=== PATIENT | female | born 1960 | race Caucasian/White ===

== ENCOUNTER 2021-09-17 11:29 | Observation (INO) | payer OTHER, SELFPAY ==
[2021-09-17] VITALS (25 sets, daily range): BP systolic 116–157; BP diastolic 72–105; PULSE 94–108; RESP 15–26; TEMP 36.3–36.4; O2SAT 95–100
--- NOTE | ~2021-09-17 | CT_ITS ---
EXAMINATION: CT cervical spine wo con DATE: 09/17/2021 12:24 INDICATION: Fall. TECHNIQUE: Computed tomography (CT) of the cervical spine was performed without intravenous contrast. Automated exposure control and iterative reconstruction technique were employed. The dose-length pro duct was 118.78 mGy-cm. COMPARISON: None FINDINGS: The visualized portions of the lung apices demonstrate emphysema. Vertebral body heights ar e normal. There is moderately decreased disc height at C5-C6. The following disc levels are specifica lly discussed: C2-C3: There is mild bilateral uncovertebral joint osteoarthritis. There is mild left facet joint ost eoarthritis. There is no neural foraminal stenosis. There is no central canal stenosis. C3-C4: There is mild left uncovertebral joint osteoarthritis. There is mild right and moderate left f acet joint osteoarthritis. There is no neural foraminal stenosis. There is no central canal stenosis. C4-C5: There is no uncovertebral joint osteoarthritis. There is mild bilateral facet joint osteoarthr itis. There is no neural foraminal stenosis. There is no central canal stenosis. C5-C6: There is moderate right and severe left uncovertebral joint osteoarthritis. There is moderate right and severe left facet joint osteoarthritis. There is mild left neural foraminal stenosis. There is mild central canal stenosis. C6-C7: There is no uncovertebral joint osteoarthritis. There is mild bilateral facet joint osteoarthr itis. There is no neural foraminal stenosis. There is no central canal stenosis. C7-T1: There is no uncovertebral joint osteoarthritis. There is mild bilateral facet joint osteoarthr itis. There is no neural foraminal stenosis. There is no central canal stenosis. IMPRESSION: 1. No fracture. 2. Moderate spondylosis at C5-C6 and mild spondylosis at other levels. Reviewed, dictated and finalized at location A.
--- NOTE | ~2021-09-17 | XR_ITS ---
EXAMINATION: XR pelvis 1-2V DATE: 09/17/2021 12:31 INDICATION: Pelvic pain. TECHNIQUE: An anteroposterior view of the pelvis was obtained. COMPARISON: None. FINDINGS: Bone alignment is normal. No fracture. There is mild osteoarthritis of the hips. There is a t least mild lumbar spondylosis. A calcification in the pelvis is likely a fibroid. IMPRESSION: 1. Mild osteoarthritis of the hips. Reviewed, dictated and finalized at location A.
--- NOTE | ~2021-09-17 | CT_ITS ---
EXAMINATION: CT brain wo con DATE: 09/17/2021 12:24 INDICATION: Fall. TECHNIQUE: Computed tomography (CT) of the head was performed without intravenous contrast. The mA wa s adjusted according to patient size. Iterative reconstruction technique was employed. The dose-lengt h product was 605.33 mGy-cm. COMPARISON: None FINDINGS: There is no intracranial hemorrhage, acute infarction, or abnormal intracranial mass lesion . There are scattered areas of low attenuation in the cerebral white matter, which is within normal l imits for the patient's age. The ventricles are normal in size. The orbits are normal. There is mild mucosal thickening in the paranasal sinuses. The mastoid air cells are normal. IMPRESSION: 1. Normal aging brain. Reviewed, dictated and finalized at location A. IMPRESSION: 1. Normal aging brain.
--- NOTE | ~2021-09-17 | XR_ITS ---
EXAMINATION: XR chest 1V DATE: 09/17/2021 12:32 INDICATION: Chest pain. Fall. TECHNIQUE: A single frontal view of the chest was obtained. COMPARISON: None. FINDINGS: The chest demonstrates clear lungs without pneumonia, pleural effusion, or pneumothorax. Th e heart size is normal. IMPRESSION: 1. No acute cardiopulmonary disease. Reviewed, dictated and finalized at location A.
--- NOTE | 2021-09-17 11:44 | ECG_ITS ---
Measurements Intervals [place] Rate: 91 P: 84 [place]: 164 QRS: 58 QRSD: 77 T: 54 QT: 344 QTc: 424 Interpretive Statements SINUS RHYTHM WITHIN NORMAL LIMITS NO PREVIOUS ECG AVAILABLE FOR COMPARISON Electronically Signed On 09-17-2021 16:29:32 CDT by Shar Thomas M.D.
--- NOTE | 2021-09-17 12:10 | ED.FALL ---
HPI - Fall General Chief Complaint: Fall Stated Complaint: fall Source: RN notes reviewed History of Present Illness HPI Narrative: Patient presents to emergency department from [facility] via EMS for a fall. Patient states she went to go to the restroom she states that she called for help to go the bathroom but had had to go before help arrived and walked her self to the bathroom states she sat down on the toilet to go the bathroom and when she went to go get up she was dizzy states she was able to get herself up and then she fell she is unsure if she had any loss of consciousness states she normally walks with a walker but did not have a walker at that time. She denies any pain at this time she denies any recent illness denies any fevers or chills chest pain or shortness of breath Related Data Allergies Allergy/AdvReac Type Severity Reaction Status Date / Time No Known Allergies Allergy Verified 09/17/21 11:43 Review of Systems Review of Systems: Gen.: Denies fevers or chills Eyes: Denies eye pain or visual change ENT: Denies congestion Respiratory: Denies shortness of breath or cough CV: Denies chest pain or palpitations GI: Denies abdominal pain nausea, emesis or diarrhea Musculoskeletal: Denies back pain or muscle pain Neuro: Denies numbness, tingling, weakness or focal weakness Skin: Denies rash Except as documented, all other systems reviewed and negative [facility] Past Medical History Medical History (Updated 09/17/21 @ 16:08 by Quincy Hansen DO) Patient denies significant medical history Social History Social History (Updated 09/17/21 @ 16:05 by Quincy Hansen DO) Smoking status: Never smoker Exam Narrative: APPEARANCE: No acute distress, nontoxic, resting in bed EYES: EOMI, PERRL HEENT: Normocephalic, atraumatic, no facial tenderness Neck no midline tenderness palpation tender palpation right paravertebral muscles C5-7 RESPIRATORY: No respiratory distress Clear to auscultation bilaterally with no rhonchi wheezing or rales. CARDIOVASCULAR: Regular rate and rhythm without murmurs rubs or gallops. ABDOMINAL: Soft, nontender, nondistended, no rebound or guarding MUSCULOSKELETAl: Moves all extremities. No clubbing, cyanosis or edema. No tenderness of bilateral upper or lower extremities Back: No midline thoracic or lumbar tenderness palpation NEURO: Awake and alert x 4. Following commands, speech normal, no focal deficits SKIN:: Warm, dry. No rashes lesions or abrasions PSYCHIATRIC: Normal affect/mood, Course Course Emergency Course: Attempted to get patient up for road test patient weak and unable to walk on her own will admit for antibiotics Discussed with JOJO Zamorano for Dr. Jain agrees with admission at this time Discussed with patient and family results of workup and diagnosis. Discussed need for admission. Patient and family understand and agree to current treatment plan Vital Signs Vital signs: Vital Signs Blood Pressure 134/98 H 09/17/21 11:32 Pulse Oximetry 100 09/17/21 11:32 Temperature 97.5 F L 09/17/21 16:19 Pulse Rate 94 09/17/21 16:19 Respiratory Rate 16 09/17/21 16:19 Blood Pressure 138/100 H 09/17/21 16:19 Pulse Oximetry 99 09/17/21 16:19 Oxygen Delivery Room Air 09/17/21 11:34 MDM - Fall Lab Data Result diagrams: 09/17/21 12:13 09/17/21 12:13 Labs: Lab Results 09/17/21 09/17/21 09/17/21 Range/Units 12:13 12:13 12:13 WBC 6.8 (4.5-10.0) K/mm3 RBC 3.55 L (4.2-5.4) M/mm3 Hgb 11.5 L (12.0-15.0) g/dL Hct 35.7 L (37.0-47.0) % MCV 100.6 H (80-100) fl MCH 32.4 (26-34) pg MCHC 32.2 (32-36) g/dl RDW 16.1 H (11.5-14.5) % Plt Count 323 (150-375) k/mm3 MPV 9.3 (7.4-10.4) fl Immature Gran % (Auto) 0.7 H (0-0.5) % Neut % (Auto) 61.9 (45.5-73.1) % Lymph % (Auto) 26.2 (18.3-44.2) % [place] % (Auto) 9.2 H (2.6-8.5) % Eos % (Auto) 1.0 (0-4.4) % Baso %
[2021-09-17 12:19] LABS: Basophils Absolute Auto 0.1 K/mm3 (0.0-0.1); Eosinophils Absolute Auto 0.1 K/mm3 (0-0.3); Hematocrit 35.7 % (37.0-47.0); Hemoglobin 11.5 g/dL (12.0-15.0); Immature Granulocyte Absolute 0.05 K/mm3 (0.00-0.031); Immature Granulocyte Percent A 0.7 % (0-0.5); Lymphocytes Absolute Auto 1.79 K/mm3 (0.9-3.2); Lymphocytes Percent Auto 26.2 % (18.3-44.2); Mean Corpuscular HGB Conc 32.2 g/dl (32-36); Mean Corpuscular Hemoglobin 32.4 pg (26-34); Mean Corpuscular Volume 100.6 fl (80-100); Mean Platelet Volume 9.3 fl (7.4-10.4); Monocytes Absolute Auto 0.6 K/mm3 (0.1-0.6); Monocytes Percent Auto 9.2 % (2.6-8.5); Neutrophils Absolute Auto 4.2 K/mm3 (1.3-6.7); Neutrophils Percent Auto 61.9 % (45.5-73.1); Platelet Count Result 323 k/mm3 (150-375); Red Blood Count 3.55 M/mm3 (4.2-5.4); Red Cell Distribution Width 16.1 % (11.5-14.5); White Blood Count 6.8 K/mm3 (4.5-10.0)
[2021-09-17 12:28] LABS: Alanine Aminotransferase 19 U/L (6-35); Albumin Level 3.1 g/dL (3.5-5.1); Alkaline Phosphatase 115 U/L (38-126); Anion Gap 7 mmol/L (8-16); Aspartate Amino Transferase 26 U/L (14-36); Bilirubin,Total 0.8 mg/dL (0.2-1.3); Blood Urea Nitrogen 4 mg/dL (7-17); Calcium 8.3 mg/dL (8.4-10.2); Carbon Dioxide 26 mmol/L (22-30); Chloride 103 mmol/L (98-107); Estimated CRCL calculation 85 ml/min; Estimated Glomerular Filt Rate > 60; Glucose 106 mg/dL (65-110); Potassium 4.2 mmol/L (3.4-5.0); Sodium 136 mmol/L (137-145)
[2021-09-17 12:35] LABS: Partial Thromboplastin Time 26.2 SECONDS (22.3-36.8)
[2021-09-17 14:40] LABS: Appearance Urine Clear (Clear); Bilirubin Urine Negative (Negative); Color Urine Yellow (Yellow); Glucose Urine UA Negative (Negative); Ketones Urine Negative (Negative); Leukocyte Esterase Ur 2+ LEU/UL (Negative); Nitrate Urine Negative (Negative); Protein Urine Negative (Negative); Specific Grav Ur 1.015 (1.001-1.035); pH Urine 7.5 (5.0-9.0)
[2021-09-17 14:44] LABS: Add Urine Microscopic? YES; Blood Urine Trace-Intact (Negative)
[2021-09-17 14:59] LABS: Bacteria Urine Trace /hpf; RBC Urine 0-2 /hpf (0-2); Squamous Epithelial Cell Urine Rare /hpf (Few); WBC Urine 16-20 /hpf
--- NOTE | 2021-09-17 16:07 | PC.NURSE ---
Meal ordered from dietary
[2021-09-17 16:28] LABS: SARS-CoV-2 RNA PCR Negative
[2021-09-17 16:34] LABS: Troponin I < 0.012 ng/mL (0.000-0.034)
--- NOTE | 2021-09-17 17:42 | ADMGEN ---
This patient, Angella Dunn, was admitted to Medical Room 248-. Patient/family oriented to hospital policies and general routines including ID bracelet, bed and alarms, visiting hours, pain management, procedures, bathroom and other care routines, personal items, smoking policy, room service/diet, and visiting hours. Information on how to activate the Rapid Response Team has been discussed. Patient/Family are encouraged to report perceived risks to care and to ask questions if they do not understand what they are told or what they should do.
--- NOTE | 2021-09-17 18:10 | PM.IMHP ---
H&P: HPI History of Present Illness Date/Time: 09/17/21 18:10 Chief Complaint: Unwitnessed fall. Narrative: This is a 61-year-old female with history of alcohol abuse who presented to the emergency department via EMS from [facility] in [place] for evaluation after an unwitnessed fall. She was living in a home with her friend prior to about 2 months ago. It is my understanding that she fell down a couple of steps while at a barbecue and she was hospitalized for a couple of days before being discharged to a rehab facility in [place]. She was happy that facility and reports that they were doing physical therapy with her but about 2 weeks ago she was sent to [facility], reason unknown to the patient. She indicates to me that she has been essentially bed-bound since being transferred there and she is not receiving physical therapy. She is told to call for help when she needs to go to the bathroom however today her calls went unanswered and she got herself up to use the restroom. She made it back to her bed but unfortunately lost her balance ?because my legs are weak and shaky? when trying to get into bed, and she fell down onto her buttocks. She struck the back of her head on the floor but she denies injuries in the fall. Workup in the emergency department was relatively unrevealing but due to her inability to ambulate unassisted with a walker (she reported to the ED physician that she is typically able to do so without assistance) she is being admitted in this setting. Review of Systems Review of Systems: Twelve systems were reviewed. No history of stroke. Denies focal weakness and paresthesias. Recent cold or flu symptoms. No fever, chills, or sweats. No nausea, vomiting, or diarrhea. No dysuria, urgency, or urinary hesitancy. She denies ever having signs or symptoms of alcohol withdrawal. Except as documented, all other systems were reviewed and are negative. [facility] Past Medical History Medical History Alcohol abuse Surgical History Surgical History (Updated 09/18/21 @ 13:29 by Lona Eller PA-C) History of benign breast biopsy Family History Family History Mother Pancreatic cancer Social History Social History (Updated 09/18/21 @ 13:31 by Lona Eller PA-C) Social History: Surrogate medical decision maker: Eloina Alarcon, friend. Code status: Full code. Smoking packs per day: 2 Smoking cigarettes per day: 40.0 Years smoked: 50 Smoking pack-years: 100.00 Smoking status: Former smoker Additional smoking assessment comments: No cigarettes since July 2021. Alcohol intake: former Alcohol use details: No alcohol since July 2021. Prior to that she drank 6-7, 32 oz cans of beer a day. Substance use: never Additional living arrangements comments: Currently at [facility] for reported rehab.. Spiritual care concerns: No Meds Home Medications and Allergies Home Medications Medication Instructions Recorded Confirmed Type Therems Multivitamin 1 tab-cap PO DAILY 09/17/21 09/17/21 History bisacodyl 10 mg rectal suppository 10 mg RECTAL DAILY PRN constipation 09/17/21 09/17/21 History diclofenac sodium 1 % topical TID 09/17/21 09/17/21 History gabapentin 100 mg capsule 100 mg PO BID 09/17/21 09/17/21 History magnesium citrate 296 ml PO ONCE PRN Constipation 09/17/21 09/17/21 History magnesium hydroxide 400 mg/5 mL 400 mg PO DAILY PRN Constipation 09/17/21 09/17/21 History oral suspension (Milk of Magnesia) Allergies Allergy/AdvReac Type Severity Reaction Status Date / Time No Known Allergies Allergy Verified 09/17/21 17:42 Vital Signs Vital Signs - 24 hr 09/17/21 11:34 09/17/21 11:51 09/17/21 11:32 Temperature 97.6 F Pulse Rate 98 Respiratory Rate 16 Blood Pressure 134/98 H 134/98 H Pulse Oximetry 100 100 Oxygen Delivery Room Air 09/17/21 11:33 09/17/21
[2021-09-17 19:07] LABS: Troponin I < 0.012 ng/mL (0.000-0.034)
--- NOTE | 2021-09-17 19:08 | PM.TDS ---
Transfer Discharge Sum: Prov Provider Date of admission: 09/17/21 15:52 Primary care physician: UNKNOWN,DOCTOR Admitting clinician: Mariela Jain MD Transfer Discharge Sum: Med Medications Active and Home Medications: Active Medications Ceftriaxone Sodium/Dextrose (Rocephin 1 Gm/D5w 50 Ml) 1 gm in 50 mls @ 100 mls/hr IVPB Q24H KEYSHAWN Sodium Chloride (Normal Saline Iv) 1,000 mls @ 80 mls/hr IV CONT .[id number] KEYSHAWN Transfer Discharge Sum: Hosp Hospital Course Hospital course: Angella Dunn is a 61 year old female Time Spent with Patient Time attestation: Total time spent providing and/or coordinating transfer services: DS: Data Data Completed and Pending Labs on day of discharge: Labs from last 24 hours 09/17/21 09/17/21 09/17/21 18:26 15:27 14:16 WBC RBC Hgb Hct MCV MCH MCHC RDW Plt Count MPV Immature Gran % (Auto) Neut % (Auto) Lymph % (Auto) [place] % (Auto) Eos % (Auto) Baso % (Auto) Lymph # (Auto) [place] # (Auto) Eos # (Auto) Baso # (Auto) Abs Immat Gran (auto) Absolute Neuts (auto) Absolute Nucleated RBC Nucleated RBC % PT INR APTT Sodium Potassium Chloride Carbon Dioxide Anion Gap BUN Creatinine Estim Creat Clear Calc Estimated GFR Glucose Calcium Total Bilirubin AST ALT Alkaline Phosphatase Troponin I < 0.012 Total Protein Albumin Urine Color Yellow Urine Appearance Clear Urine pH 7.5 Ur Specific [place] 1.015 Urine Protein Negative Urine Glucose (UA) Negative Urine Ketones Negative Ur Blood (Man) Trace-intact Urine Nitrate Negative Urine Bilirubin Negative Urine Urobilinogen 1.0 Leukocyte Esterase Rfl 2+ H Urine RBC 0-2 Urine WBC 16-20 H Ur Squamous Epith Cells Rare Urine Bacteria Trace SARS-CoV-2 RNA (RT-PCR) Negative 09/17/21 09/17/21 09/17/21 12:13 12:13 12:13 WBC RBC Hgb Hct MCV MCH MCHC RDW Plt Count MPV Immature Gran % (Auto) Neut % (Auto) Lymph % (Auto) [place] % (Auto) Eos % (Auto) Baso % (Auto) Lymph # (Auto) [place] # (Auto) Eos # (Auto) Baso # (Auto) Abs Immat Gran (auto) Absolute Neuts (auto) Absolute Nucleated RBC Nucleated RBC % PT 13.0 INR 1.0 APTT 26.2 Sodium 136 L Potassium 4.2 Chloride 103 Carbon Dioxide 26 Anion Gap 7 L BUN 4 L Creatinine 0.50 L Estim Creat Clear Calc 85 Estimated GFR > 60 Glucose 106 Calcium 8.3 L Total Bilirubin 0.8 AST 26 ALT 19 Alkaline Phosphatase 115 Troponin I < 0.012 Total Protein 7.0 Albumin 3.1 L Urine Color Urine Appearance Urine pH Ur Specific [place] Urine Protein Urine Glucose (UA) Urine Ketones Ur Blood (Man) Urine Nitrate Urine Bilirubin Urine Urobilinogen Leukocyte Esterase Rfl Urine RBC Urine WBC Ur Squamous Epith Cells Urine Bacteria SARS-CoV-2 RNA (RT-PCR) 09/17/21 12:13 WBC 6.8 RBC 3.55 L Hgb 11.5 L Hct 35.7 L MCV 100.6 H MCH 32.4 MCHC 32.2 RDW 16.1 H Plt Count 323 MPV 9.3 Immature Gran % (Auto) 0.7 H Neut % (Auto) 61.9 Lymph % (Auto) 26.2 [place] % (Auto) 9.2 H Eos % (Auto) 1.0 Baso % (Auto) 1.0 Lymph # (Auto) 1.79 [place] # (Auto) 0.6 Eos # (Auto) 0.1 Baso # (Auto) 0.1 Abs Immat Gran (auto) 0.05 H Absolute Neuts (auto) 4.2 Absolute Nucleated RBC 0.0 Nucleated RBC % 0.0 PT INR APTT Sodium Potassium Chloride Carbon Dioxide Anion Gap BUN Creatinine Estim Creat Clear Calc Estimated GFR Glucose Calcium Total Bilirubin AST ALT Alkaline Phosphatase Troponin I Total Protein Albumin Urine Color Urine Appearance Urine pH Ur Specific [place] Urine Protein Urine Glucose (UA) Urine Ketones Ur Blood (Man) Urine Nitrate
[2021-09-17 20:56] LABS: Troponin I < 0.012 ng/mL (0.000-0.034)
[2021-09-17] MEDS: SODIUM CHLORIDE 0.9% IV 1,000 ML 80 ML IV CONT (21:08)
[2021-09-18] VITALS (16 sets, daily range): BP systolic 102–138; BP diastolic 62–117; PULSE 95–120; RESP 12–16; TEMP 36.3–36.9; O2SAT 98–100; BMI 22.2
[2021-09-18 08:52] LABS: Anion Gap 8 mmol/L (8-16); Blood Urea Nitrogen 4 mg/dL (7-17); Calcium 8.4 mg/dL (8.4-10.2); Carbon Dioxide 22 mmol/L (22-30); Chloride 106 mmol/L (98-107); Estimated CRCL calculation 75 ml/min; Estimated Glomerular Filt Rate > 60; Glucose 118 mg/dL (65-110); Potassium 3.8 mmol/L (3.4-5.0); Sodium 136 mmol/L (137-145)
[2021-09-18 09:04] LABS: Basophils Absolute Auto 0.1 K/mm3 (0.0-0.1); Basophils Percent Auto 1.1 % (0.2-1.2); Eosinophils Absolute Auto 0.1 K/mm3 (0-0.3); Eosinophils Percent Auto 0.9 % (0-4.4); Hematocrit 32.1 % (37.0-47.0); Hemoglobin 10.8 g/dL (12.0-15.0); Immature Granulocyte Absolute 0.06 K/mm3 (0.00-0.031); Immature Granulocyte Percent A 0.6 % (0-0.5); Lymphocytes Absolute Auto 2.34 K/mm3 (0.9-3.2); Lymphocytes Percent Auto 25.1 % (18.3-44.2); Mean Corpuscular HGB Conc 33.6 g/dl (32-36); Mean Corpuscular Volume 98.2 fl (80-100); Mean Platelet Volume 9.8 fl (7.4-10.4); Monocytes Absolute Auto 0.8 K/mm3 (0.1-0.6); Monocytes Percent Auto 8.2 % (2.6-8.5); Neutrophils Percent Auto 64.1 % (45.5-73.1); Platelet Count Result 368 k/mm3 (150-375); Red Blood Count 3.27 M/mm3 (4.2-5.4); Red Cell Distribution Width 16.4 % (11.5-14.5); White Blood Count 9.3 K/mm3 (4.5-10.0)
[2021-09-18] MEDS: GABAPENTIN 100 MG CAPSULE PO ×2 (09:32→16:52)
[2021-09-18] MEDS: MULTIVITAMINS THERAPEUTIC TAB (*BKC) 1 TABLET PO (09:32)
[2021-09-18 12:16] LABS: Iron 66 ug/dL (37-170)
[2021-09-18 12:28] LABS: Percent Iron Saturation 34 % (20-50)
--- NOTE | 2021-09-18 12:42 | PM.IMPN ---
Progress Note: A&P Assessment and Plan (1) Unwitnessed fall: Code(s): R29.6 - Repeated falls Status: Acute Assessment and Plan: atient reports that she felt weak and shaky when ambulating back to her bed, which caused her to lose her balance and fall. She sustained no injuries in the fall. Unfortunately it sounds as though she continues to become increasingly more weak with lesser activity.? Per patient report, she is rarely allowed out of the bed and she is not receiving therapy. Ultimately her goal is to return home. Initiate fall precautions.? PT/OT consulted. She would benefit from placement in the rehab facility where she will actually receive therapy. 09/18/2021 interval history: today patient stats she was able to work with PT and ambulated with walker, patient weakness, fatigue, unsteady in her feet and recurrent fall, Concerning for anemia, her iron vitamin B12 levels are normal, TSH is pending, will continue physical therapy patient will benefit with rehab and further recommendation to follow. (2) Gait instability: Code(s): R26.81 - Unsteadiness on feet Status: Acute Assessment and Plan: will have a PT OT evaluate the patient patient will benefit going to rehab. Subjective Date/time seen: 09/18/21 12:42 This is a 61-year-old female with history of alcohol abuse who presented to the emergency department via EMS from [facility] in [place] for evaluation after an unwitnessed fall. She was living in a home with her friend prior to about 2 months ago. It is my understanding that she fell down a couple of steps while at a barbecue and she was hospitalized for a couple of days before being discharged to a rehab facility in [place]. She was happy that facility and reports that they were doing physical therapy with her but about 2 weeks ago she was sent to [facility], reason unknown to the patient. She indicates to me that she has been essentially bed-bound since being transferred there and she is not receiving physical therapy. She is told to call for help when she needs to go to the bathroom however today her calls when on answered and she got herself up to use the restroom. She made it back to her bed but unfortunately lost her balance ?because my legs are weak and shaky? when trying to get into bed, and she fell down onto her buttocks. She struck the back of her head on the floor but she denies injuries in the fall. Workup in the emergency department was relatively unrevealing but due to her inability to ambulate along with a walker (she reported to the ED physician that she is typically able to do so without assistance) she is being admitted in this setting. 09/18/2021 interval history: today patient stats she was able to work with PT and ambulated with walker, patient weakness, fatigue, unsteady in her feet and recurrent fall, Concerning for anemia, her iron vitamin B12 levels are normal, TSH is pending, will continue physical therapy patient will benefit with rehab and further recommendation to follow. Review of Systems Review of Systems: Twelve systems were reviewed. No recent cold or flu symptoms. No fever, chills, or sweats. No nausea, vomiting, or diarrhea. No dysuria. She denies ever having signs or symptoms of alcohol withdrawal. Exam Narrative: Patient is comfortable, NAD HEENT: eyes are clear and none icteric LUNGS: normal respiratory effort ABD: not distended Lower extremities: no edema SKIN: nonjaundiced Neuro: grossly intact. Objective Data Vital Signs Vital Signs: Vital Signs - 24 hr 09/17/21 12:45 09/17/21 13:00 09/17/21 13:15 Temperature Pulse Rate Respiratory Rate Blood Pressure Pulse Oximetry 99 98 98 Oxygen Delivery 09/17/21 13:30 09/17/21 14:05 09/17/21 14:59 Temperature Pulse Rate Respiratory Rate Blood Pressure Pulse Oximetry 98 99 96 Oxygen Delivery 09/17/21 15:00 09/17/21 16:19 09/17/21
[2021-09-18 15:11] LABS: Creatine Kinase 81 U/L (30-135)
[2021-09-18] MEDS: MIDODRINE HCL 2.5 MG TABLET PO (17:32)
[2021-09-18] MEDS: SODIUM CHLORIDE 0.9% IV 1,000 ML 80 ML IV CONT (21:24)
[2021-09-19] VITALS (12 sets, daily range): BP systolic 103–145; BP diastolic 62–93; PULSE 92–109; RESP 16; TEMP 36.6–37.1; O2SAT 97–100
[2021-09-19] MEDS: MULTIVITAMINS THERAPEUTIC TAB (*BKC) 1 TABLET PO (09:22)
[2021-09-19] MEDS: MIDODRINE HCL 2.5 MG TABLET PO ×3 (09:22→17:23)
[2021-09-19] MEDS: GABAPENTIN 100 MG CAPSULE PO ×2 (09:22→17:23)
[2021-09-19] MEDS: SODIUM CHLORIDE 0.9% IV 1,000 ML 80 ML IV CONT ×2 (09:24→21:40)
--- NOTE | 2021-09-19 13:07 | PM.IMPN ---
Progress Note: A&P Assessment and Plan (1) Unwitnessed fall: Code(s): R29.6 - Repeated falls Status: Acute Assessment and Plan: Patient reports that she felt weak and shaky when ambulating back to her bed today, which caused her to lose her balance and fall. She sustained no injuries in the fall. Unfortunately it seems she has continued to get more and more weak as she has not been offered physical therapy at her new facility she spends a majority of her time in bed. Ultimately her goal is to return home thus will consult PT/OT and ideally we could get her into a rehab facility where she will receive these services. Initiate fall precautions. 09/19/2021 interval history:?patient stated she feels weak and has difficulty with ambulation, falls while walking, patient stated she was able to work with PT and ambulated with walker however patient felt weak fatigue, unsteady in her feet and sat down while ambulting, , Concerning for anemia, her iron vitamin B12 levels are normal, TSH is normal, patient BP is soft concern for hypotension, added midodrine 2.5 mg TID, today patient blood pressure is little better and was able to ambulate with PT without falling, will do cardiac echo and will continue physical therapy patient will benefit with rehab and further recommendation to follow. (2) Gait instability: Code(s): R26.81 - Unsteadiness on feet Status: Acute Assessment and Plan: Plan is as detailed above. Initiate fall precautions. Subjective Date/time seen: 09/19/21 13:07 09/19/2021 interval history:?patient stated she feels weak and has difficulty with ambulation, falls while walking, patient stated she was able to work with PT and ambulated with walker however patient felt weak fatigue, unsteady in her feet and sat down while ambulting, , Concerning for anemia, her iron vitamin B12 levels are normal, TSH is normal, patient BP is soft concern for hypotension, added midodrine 2.5 mg TID, today patient blood pressure is little better and was able to ambulate with PT without falling, will do cardiac echo and will continue physical therapy patient will benefit with rehab and further recommendation to follow. Review of Systems Review of Systems: Twelve systems were reviewed. No recent cold or flu symptoms. No fever, chills, or sweats. No nausea, vomiting, or diarrhea. No dysuria. She denies ever having signs or symptoms of alcohol withdrawal. Exam Narrative: Patient is comfortable, NAD HEENT: eyes are clear and none icteric LUNGS: normal respiratory effort ABD:? not distended Lower extremities: no edema SKIN: nonjaundiced Neuro: grossly intact. Objective Data Vital Signs Vital Signs: Vital Signs - 24 hr 09/18/21 14:15 09/18/21 14:39 09/18/21 16:00 Temperature 97.4 F L 97.4 F L Pulse Rate 114 H 114 H 100 Respiratory Rate 16 16 Blood Pressure 102/77 102/77 Pulse Oximetry 100 100 Oxygen Delivery 09/18/21 18:25 09/18/21 18:28 09/18/21 18:30 Temperature Pulse Rate 99 105 H 120 H Respiratory Rate Blood Pressure 138/86 102/76 Pulse Oximetry Oxygen Delivery 09/18/21 21:20 09/18/21 21:24 09/18/21 21:29 Temperature 98.5 F 98.5 F 98.5 F Pulse Rate 99 98 98 Respiratory Rate 12 12 12 Blood Pressure 117/72 117/72 117/72 Pulse Oximetry 98 99 99 Oxygen Delivery 09/18/21 21:24 09/18/21 21:27 09/18/21 20:00 Temperature Pulse Rate 95 Respiratory Rate Blood Pressure 110/72 138/117 H Pulse Oximetry Oxygen Delivery 09/19/21 00:00 09/19/21 04:00 09/19/21 04:20 Temperature 97.8 F Pulse Rate 94 107 H 92 Respiratory Rate 16 Blood Pressure 124/82 Pulse Oximetry 97 Oxygen Delivery 09/19/21 08:00 09/19/21 08:00 09/19/21 12:00 Temperature Pulse Rate 97 109 H Respiratory Rate Blood Pressure Pulse Oximetry Oxygen Delivery Room Air Intake/Output Intake/Output: Intake & Output 09/16/21 09/17/21 09/18/2109/19
[2021-09-20] VITALS (7 sets, daily range): BP systolic 126–129; BP diastolic 79–83; PULSE 91–99; RESP 14–16; TEMP 36.3–36.7; O2SAT 100
--- NOTE | 2021-09-20 | ECHO_ITS ---
Patient Info Name: Angella Dunn Age: 61 years : 1960 Gender: Female Ht: 65 in Wt: 133 lbs BSA: 1.67 m2 HR: 98 bpm BP: 126 / 83 mmHg Heart Rhythm: Sinus Rhythm Technical Quality: Fair Exam Date: 09/20/2021 7:46 AM Exam Location: [facility] Patient Status: Inpatient Admit Date: 09/17/2021 Staff Ordering Physician: Mariela Jain MD [employer]: [employer] Attending Provider: Mariela Jain MD Exam Type: CA echo doppler color flow Study Info Indications - hypotension Complete two-dimensional, color flow and Doppler transthoracic echocardiogram is performed. Summary 1. Complete two-dimensional, color flow and Doppler transthoracic echocardiogram is performed. 2. Normal left ventricular size, thickness systolic function. 3. Grade 1 diastolic noncompliance. 4. Sclerotic aortic valve which is not functionally stenotic. Left Ventricle Left ventricular chamber dimension is normal. Left ventricular systolic function is normal, estimated at 60-65%. The left ventricular diastolic function is grade I diastolic dysfunction. Right Ventricle Right ventricular chamber dimension is normal. Left Atria Left atrial chamber dimension is normal. Right Atria Right atrial chamber dimension is normal. Aortic Valve The aortic valve is trileaflet. There is mild aortic valve sclerosis. Pulmonic Valve The pulmonic valve is normal. Mitral Valve The mitral valve has normal leaflets. Tricuspid Valve The tricuspid valve leaflets are normal. Pericardium/Pleural The pericardium appears normal. Aorta The aortic root size at the sinus of Valsalva is normal. Left Ventricular Outflow Tract Name Value Normal LVOT 2D LVOT Diameter 2.0 cm LVOT Doppler LVOT Peak Gradient 3 mmHg LVOT Mean Gradient 2 mmHg LVOT VTI 15 cm LVOT VTI/AV VTI Ratio 0.8 LVOT Stroke Volume 47 ml LVOT CO 4.4 l/min LVOT CI 2.6 l/min/m2 Pulmonic Valve Name Value Normal RVOT Doppler RVOT Peak Gradient 2 mmHg PV Doppler PV Peak Gradient 3 mmHg Mitral Valve Name Value Normal MV Doppler MV [place] 706 cm/s2 MV PHT 31 ms MV Area (PHT) 7.2 cm2 4.0-5.0 MV Diastolic Function
[2021-09-20] MEDS: MIDODRINE HCL 2.5 MG TABLET PO ×3 (08:20→16:26)
[2021-09-20] MEDS: MULTIVITAMINS THERAPEUTIC TAB (*BKC) 1 TABLET PO (08:20)
[2021-09-20] MEDS: GABAPENTIN 100 MG CAPSULE PO ×2 (08:20→16:26)
[2021-09-20] MEDS: SODIUM CHLORIDE 0.9% IV 1,000 ML 80 ML IV CONT (12:03)
--- NOTE | 2021-09-20 14:22 | PM.DS ---
DS: Admitting Diagnosis Discharge Date 09/20/2021 Admitting Diagnosis unwitnessed fall DS: Discharge Diagnosis Discharge Diagnosis (1) Unwitnessed fall: Code(s): R29.6 - Repeated falls Status: Acute Assessment and Plan: Patient reports that she felt weak and shaky when ambulating back to her bed today, which caused her to lose her balance and fall. She sustained no injuries in the fall. Unfortunately it seems she has continued to get more and more weak as she has not been offered physical therapy at her new facility she spends a majority of her time in bed. Ultimately her goal is to return home thus will consult PT/OT and ideally we could get her into a rehab facility where she will receive these services. Initiate fall precautions. 09/19/2021 interval history:?patient stated she feels weak and has difficulty with ambulation, falls while walking, patient stated she was able to work with PT and ambulated with walker however patient felt weak fatigue, unsteady in her feet and sat down while ambulting, , Concerning for anemia, her iron vitamin B12 levels are normal, TSH is normal, patient BP is soft concern for hypotension, added midodrine 2.5 mg TID, today patient blood pressure is little better and was able to ambulate with PT without falling, will do cardiac echo and will continue physical therapy patient will benefit with rehab and further recommendation to follow. (2) Gait instability: Code(s): R26.81 - Unsteadiness on feet Status: Acute Assessment and Plan: Plan is as detailed above. Initiate fall precautions. DS: Summary Hospital Course Reason for hospitalization: Unwitnessed fall. Narrative: This is a 61-year-old female with history of alcohol abuse who presented to the emergency department via EMS from [facility] in [place] for evaluation after an unwitnessed fall. She was living in a home with her friend prior to about 2 months ago. It is my understanding that she fell down a couple of steps while at a barbecue and she was hospitalized for a couple of days before being discharged to a rehab facility in [place]. She was happy that facility and reports that they were doing physical therapy with her but about 2 weeks ago she was sent to [facility], reason unknown to the patient. She indicates to me that she has been essentially bed-bound since being transferred there and she is not receiving physical therapy. She is told to call for help when she needs to go to the bathroom however today her calls went unanswered and she got herself up to use the restroom. She made it back to her bed but unfortunately lost her balance ?because my legs are weak and shaky? when trying to get into bed, and she fell down onto her buttocks. She struck the back of her head on the floor but she denies injuries in the fall. Workup in the emergency department was relatively unrevealing but due to her inability to ambulate unassisted with a walker (she reported to the ED physician that she is typically able to do so without assistance) she is being admitted in this setting. Hospital Course: patient stated she feels weak and has difficulty with ambulation, falls while walking,? patient stated she was able to work with PT and ambulated with walker however? patient felt weak fatigue, unsteady in her feet and sat down while ambulating, , Concerning for anemia, her iron vitamin B12 levels are normal, TSH is normal, patient BP is soft concern for hypotension, added midodrine 2.5 mg TID, today patient blood pressure is little better and was able to ambulate with PT without falling, will do cardiac echo and will continue physical therapy patient will benefit with rehab and further recommendation to follow. patient is clinically stable was able to ambulate with physical therapy, patient cardiac echo is essentially normal, discharge patient back to snf today. Time Spent with Patient Time attestation: Tot
[2021-09-20 15:19] LABS: EDCOVIDSCREEN Negative (Negative)
== END 2021-09-20 19:33 ==
LOC: ANHED 16:08 → ANH2MED 16:43
PROVIDERS: Physician Assistant; Admitting Provider Family Medicine; Emergency Provider Emergency Medicine; Visit Provider Family Medicine
DX: S16.1XXA Strain of muscle, fascia and tendon at neck level, initial encounter (principal); R42 Dizziness and giddiness; W18.39XA Other fall on same level, initial encounter; I95.9 Hypotension, unspecified; R29.6 Repeated falls; R26.81 Unsteadiness on feet; Z87.891 Personal history of nicotine dependence; Z20.822 Contact with and (suspected) exposure to COVID-19; Z79.899 Other long term (current) drug therapy
CPT/HCPCS: 36415; 51701; 70450; 71045; 72125; 72170; 80048; 80053; 81001; 82550; 82607; 82728; 82746; 83540; 83550; 84443; 84484; 85025; 85610; 85730; 87086; 87426; 93005; 93306; 96361; 96365; 97110; 97116; 97161; 97165; 99285; A9270; C9803; G0378; G0379; J0696; J7030; U0003; U0005